=== PATIENT | female | born 1955 | race Caucasian/White ===

== ENCOUNTER 2020-06-18 15:12 | Emergency (ER) | payer OTHER ==
[~2020-06-18] VITALS: Ht 162.6 cm; Wt 61.2 kg
[2020-06-18] MEDS ORDERED: ACETAMINOPHEN ES 500 MG TABLET PO ONE (15:30)
[2020-06-18] MEDS ORDERED: ACETAMINOPHEN ES 500 MG TABLET ONE (15:39)
[2020-06-18 16:05] LABS: BASOPHILS # (AUTO) 0.1 /CMM (0.0-0.2); BASOPHILS % (AUTO) 0.7 % (0.0-2.0); EOSINOPHILS % (AUTO) 0.1 % (0.0-6.0); HEMATOCRIT 23 % (33-45); HEMOGLOBIN 7.4 g/dL (11.5-14.8); LYMPHOCYTES # (AUTO) 1.3 /CMM (0.8-4.8); LYMPHOCYTES % (AUTO) 11.5 % (20.0-44.0); MEAN CORPUSCULAR HGB CONC 33 g/dl (31.0-36.0); MEAN CORPUSCULAR VOLUME 95 fL (82-100); MONOCYTES # (AUTO) 0.7 /CMM (0.1-1.30); MONOCYTES % (AUTO) 6.4 % (2.0-12.0); NEUTROPHILS % (AUTO) 81.3 % (43.0-81.0); PLATELET COUNT (AUTO) 266 /CMM (150-450); RED BLOOD CELL COUNT(AUTO) 2.38 MIL/uL (4.0-5.2); WHITE BLOOD COUNT (AUTO) 11.1 K/uL (4.3-11.0)
--- NOTE | 2020-06-18 16:07 | NUR ---
, from home, c/o fever x 2 days, BS 162. PT AAOX4, VSS. RR EVEN & UNLABORED. DENIES CP, SOB. DIZZINESS, N/V/D AT THIS TIME. PT SEEN & EVAL'D BY DR. DA SILVA. MEDICATED PER ERMD ORDER, PT MEGHANN WELL. WILL CONT TO MONITOR.
[2020-06-18 16:27] LABS: ALANINE AMINOTRANSFERASE 16 U/L (12-78); ALBUMIN 3.1 g/dL (3.4-5.0); ALKALINE PHOSPHATASE 98 U/L (46-116); ASPARTATE AMINOTRANSFERASE 21 U/L (15-37); BILIRUBIN,DIRECT 0.1 mg/dL (0.0-0.2); BILIRUBIN,TOTAL 0.4 mg/dL (0.2-1.0); CALCIUM, SERUM 8.6 mg/dL (8.5-10.1); CARBON DIOXIDE 27 mmol/L (21-32); CHLORIDE 96 mmol/L (98-107); GLUCOSE 119 mg/dL (74-106); POTASSIUM 4.2 mmol/L (3.5-5.1); SODIUM SERUM 133 mmol/L (136-145); TOTAL PROTEIN, SERUM 7.7 g/dL (6.4-8.2)
[2020-06-18 16:29] LABS: UREA NITROGEN, BLOOD 83 mg/dL (7-18)
[2020-06-18] MEDS ORDERED: LEVO25TA9 PO (16:55)
[2020-06-18] MEDS ORDERED: SEVE800T28 PO (16:55)
[2020-06-18] MEDS ORDERED: ALLO100T PO (16:55)
[2020-06-18] MEDS ORDERED: FERR325T24 PO (16:55)
[2020-06-18] MEDS ORDERED: CEFTRIAXONE 1GM BAG (ER ONLY) 50 ML IV ONE (16:59)
[2020-06-18] MEDS ORDERED: IV NS 0.9% 1,000 ML IV ONE (17:00)
[2020-06-18] MEDS ORDERED: CEFTRIAXONE 1GM BAG (ER ONLY) 1 GM/50 ML PIGGYBACK IV ONE (17:00)
[2020-06-18 17:19] LABS: APPEARANCE,URINE Clear (CLEAR); BILIRUBIN,URINE Negative (NEGATIVE); BLOOD, URINE Moderate Ery/uL (NEGATIVE); COLOR,URINE Yellow (YELLOW); KETONES,URINE Negative (NEGATIVE); LEUKOCYTE ESTERASE ,URINE Small (NEGATIVE); NITRITE, URINE Positive (NEGATIVE); PROTEIN,URINE >=300 mg/dl (NEGATIVE); UGLUCOSE Negative (NEGATIVE); UROBILINOGEN,URINE 0.2 EU/dL (0.2)
[2020-06-18] MEDS ORDERED: UNK BP MEDICATION PO (17:23)
[2020-06-18 17:28] LABS: BACTERIA,URINE Rare /HPF (None Seen); RBC,URINE 21-50 /HPF (0-2); SQUAMOUS EPITHELIAL CELL,UR Few /HPF (None Seen); WBC,URINE 21-50 /HPF (0-3)
--- NOTE | 2020-06-18 17:28 | NUR ---
CALLED [facility], PAGED SHEYLA CAROLINA
--- NOTE | 2020-06-18 18:27 | NUR ---
SPOKE TO NARCISA, PROTECTOR PLATE ATTACHER FROM [facility].
[2020-06-18] MEDS ORDERED: ACETAMINOPHEN 325 MG TABLET PO PRN (18:30)
[2020-06-18] MEDS ORDERED: Z GUARD REMEDY 2 OZ OINT TP PRN (18:30)
[2020-06-18] MEDS ORDERED: ONDANSETRON HCL/PF 4 MG/2 ML VIAL IVP PRN (18:30)
--- NOTE | 2020-06-18 18:46 | NUR ---
PT GOING TO BE TRANSFERRED TO [facility] W[employer] SAFETY TEACHER : SAVANNAH ACCEPTING MD: DR. BARRERA
--- NOTE | 2020-06-18 18:51 | NUR ---
NOTIFIED SAVANNAH (GUIDE DOMESTIC TOUR) FROM [facility] THAT PT WILL BE DISCHARGE HOME PER DR. DA SILVA'S ORDER.
--- NOTE | 2020-06-18 19:16 | NUR ---
IV removed. Catheter intact and site benign. Pressure and 4x4 applied to site. No bleeding noted.Patient discharged to home in stable condition. Written and verbal after care instructions given. Patient verbalizes understanding of instruction. 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
[2020-06-18 19:19] VITALS: BP 160/71
[2020-06-18] MEDS ORDERED: HEPARIN SODIUM, PORCINE 5000 UNITS/1 ML VIAL SQ ONE (21:00)
[2020-06-19] MEDS ORDERED: CEFTRIAXONE 1 G in IV D5W 50 ML IV SCH (17:00)
== END 2020-06-18 19:19 | disposition home or self-care (01) ==
LOC: ER 15:15
DX: N39.0 Urinary tract infection, site not specified (principal); R73.03 Prediabetes; I12.9 Hypertensive chronic kidney disease with stage 1 through stage 4 chronic kidney disease, or unspecified chronic kidney disease; N18.3 Chronic kidney disease, stage 3 (moderate); N17.9 Acute kidney failure, unspecified; Z87.440 Personal history of urinary (tract) infections; Z20.828 Contact with and (suspected) exposure to other viral communicable diseases; E03.9 Hypothyroidism, unspecified; Z79.890 Hormone replacement therapy; D50.9 Iron deficiency anemia, unspecified; E44.1 Mild protein-calorie malnutrition; E11.22 Type 2 diabetes mellitus with diabetic chronic kidney disease
CPT/HCPCS: 36415; 71045; 80048; 80076; 81001; 83605; 84145; 84484; 85025; 85730; 87040 ×2; 87077; 87086; 87186; 87426; 93005; 96365; 99285; J0696; J7030; 81000-TC; C9803-CS; U0003-CS